=== PATIENT | female | born 1985 | race Caucasian/White ===

== ENCOUNTER → 2025-05-15 15:54 | Outpatient (CLI) | payer OTHER, SELFPAY ==
[2025-05-15 17:07] LABS: Hematocrit 37.7 % (36-46); Hemoglobin 12.7 g/dL (12.0-16.0); Mean Corpuscular HGB Conc 33.6 % (30-36); Mean Corpuscular Hemoglobin 29.0 PG (26-34); Mean Corpuscular Volume 86.3 fL (80-100); Platelet Count 174 X10^3/uL (150-400)
[2025-05-15 17:21] LABS: HEMOLYSIS < 15 (0-50); Iron 122 ug/dL (37-170)
[2025-05-15 17:24] LABS: Alanine Aminotransferase 18 IU/L (<35); Albumin 4.8 g/dL (3.5-5.0); Albumin Globulin Ratio 1.8 (1.0-2.8); Alkaline Phosphatase 55 U/L (38-126); Blood Urea Nitrogen 14 mg/dL (7-17); Calcium 8.9 mg/dL (8.4-10.2); Carbon Dioxide 23 mmol/L (22-32); Chloride 103 mmol/L (98-107); Estimated Glomerular Filt Rate > 60 mL/min (>60); Globulin 2.7 g/dL (1.7-4.1); Glucose 104 mg/dL (70-99); HEMOLYSIS < 15 (0-50); Potassium 3.9 mmol/L (3.4-5.1); Sodium 135 mmol/L (137-145); Total Protein 7.5 g/dL (6.3-8.2)
[2025-05-15 17:35] LABS: Percent Iron Saturation 32 % (15-50); Total Iron Binding Capacity 385 ug/dL (265-497); Transferrin 326 mg/dL (206-381)
[2025-05-15 17:54] LABS: TSH w/ Reflex to FT4 1.73 uIU/mL (0.47-4.68)
[2025-05-15 18:01] LABS: Ferritin 10 ng/mL (6-137)
[2025-05-15 18:14] LABS: Progesterone, Total 9.01 ng/mL; Vitamin D 25 Hydroxy (D3) 56.9 ng/mL (30.0-100.0)
[2025-05-21 00:07] LABS: Percent Free Testosterone 1.37 % (0.50-2.80)
[2025-05-23 10:09] LABS: Estradiol, Sensitive 98.0 pg/mL (.)
== END ==
PROVIDERS: PCP Family Medicine; Referring Provider Family Medicine; Visit Provider Family Medicine
DX: E55.9 Vitamin D deficiency, unspecified (principal); D50.9 Iron deficiency anemia, unspecified; N95.1 Menopausal and female climacteric states
CPT/HCPCS: 36415; 80053; 82306; 82670; 82728; 83540; 83550; 84144; 84402; 84403; 84443; 85027